=== PATIENT | male | born 1940 | race Caucasian/White ===

== ENCOUNTER 2023-08-01 11:08 | Day surgery (SDC) | payer MEDICARE ==
[2023-08-01] VITALS (8 sets, daily range): BP systolic 92–135; BP diastolic 54–84; PULSE 63–88; RESP 14–16; TEMP 97.9; O2SAT 94–98
[~2023-08-01] VITALS: Ht 165.1 cm; Wt 103.0 kg
[~2023-08-01 11:08] MED LIST: ALBU8.5H17 INH; APIX5TAB3 PO; ASPI-1265 PO; ATOR40TA PO; AZIL40TA PO; COLC0.6T72 PO; DOXA-8 PO; FURO-149 PO; INUL2TAB8 PO; IRON1TAB97 PO; PANT-47 PO; POTA-192 PO; PROB500T10 PO
[2023-08-01] MEDS ORDERED: fentaNYL/PF 50MCG/1 ML 2ML syringe IV ONE (11:30)
[2023-08-01] MEDS ORDERED: MIDAZolam 1mg/ml 10ml vial IV ONE (11:30)
[2023-08-01] MEDS ORDERED: normal saline 1000ml 1,000 ML IV SCH (11:30)
[2023-08-01] MEDS ORDERED: DIPH25CA52 PO (11:34)
[2023-08-01] MEDS ORDERED: HYDR-3972 PO (11:34)
[2023-08-01] MEDS ORDERED: METO100T7 PO ×2 (11:40)
[2023-08-01] MEDS ORDERED: SPIR25TA5 PO (11:40)
[2023-08-01] MEDS ORDERED: DAPA10TA PO (11:40)
[2023-08-01] MEDS ORDERED: SACU1TAB4 PO (11:40)
[2023-08-01] MEDS ORDERED: AMIO200T72 PO (11:40)
[2023-08-01] MEDS ORDERED: FLO0.4C PO (11:40)
[2023-08-01] MEDS ORDERED: APIX5TAB3 PO (11:44)
== END 2023-08-01 13:15 | disposition home or self-care (01) ==
LOC: SSTAY O 11:08
PROVIDERS: ATTEND Student in an Organized Health Care Education/Training Program
DX: I48.91 Unspecified atrial fibrillation (principal); I25.10 Atherosclerotic heart disease of native coronary artery without angina pectoris; E78.5 Hyperlipidemia, unspecified; K21.9 Gastro-esophageal reflux disease without esophagitis; Z95.1 Presence of aortocoronary bypass graft; M19.90 Unspecified osteoarthritis, unspecified site; I27.20 Pulmonary hypertension, unspecified; I11.0 Hypertensive heart disease with heart failure; I50.9 Heart failure, unspecified; I35.0 Nonrheumatic aortic (valve) stenosis; I42.9 Cardiomyopathy, unspecified; Z95.810 Presence of automatic (implantable) cardiac defibrillator; Z79.899 Other long term (current) drug therapy; Z79.01 Long term (current) use of anticoagulants; Z98.890 Other specified postprocedural states; Z88.8 Allergy status to other drugs, medicaments and biological substances
CPT/HCPCS: 82948; 92960; J2250; J3010; J7030; A4620

== ENCOUNTER 2024-05-20 10:37 | Day surgery (SDC) | payer MEDICARE ==
[~2024-05-20] VITALS: Ht 162.6 cm; Wt 106.7 kg
[2024-05-20] VITALS (15 sets, daily range): BP systolic 109–164; BP diastolic 56–77; PULSE 60–97; RESP 14–22; TEMP 97; O2SAT 92–96
[~2024-05-20 10:37] MED LIST changes: -ALBU8.5H17 INH; +AMIO200T72 PO; -ASPI-1265 PO; -AZIL40TA PO; -COLC0.6T72 PO; +DAPA10TA PO; +DIPH25CA52 PO; -DOXA-8 PO; +FLO0.4C PO; +HYDR-3972 PO; -INUL2TAB8 PO; -IRON1TAB97 PO; +METO100T7 PO; -PANT-47 PO; +SACU1TAB4 PO; +SPIR25TA5 PO
[2024-05-20] MEDS ORDERED: normal saline 1,000 ML IV SCH (11:05)
[2024-05-20] MEDS ORDERED: LORazepam 0.5 MG tablet PO PRN (11:05)
[2024-05-20] MEDS ORDERED: diphenhydrAMINE 25mg capsule PO PRN (11:05)
[2024-05-20 11:21] LABS: BASOPHILS % (AUTO) 0.8 % (0-1); EOSINOPHILS # (AUTO) 0.1 X10'3 (0-0.9); EOSINOPHILS % (AUTO) 1.2 % (0-6); HEMATOCRIT 51.1 % (42.0-52.0); LYMPHOCYTES # (AUTO) 1.3 X10'3 (1.1-4.8); MEAN CORPUSCULAR HEMOGLOBIN 32.3 PG (27.0-31.0); MEAN CORPUSCULAR HGB CONC 33.3 g/dL (33.0-36.5); MEAN CORPUSCULAR VOLUME 96.9 FL (78-98); MEAN PLATELET VOLUME 8.7 FL (7.4-10.4); MONOCYTES # (AUTO) 0.7 X10'3 (0-0.9); MONOCYTES % (AUTO) 11.5 % (2-12); NEUTROPHILS % (AUTO) 65.5 % (42-75); PLATELET COUNT 142 X10'3 (140-440); RED BLOOD COUNT 5.28 X10'6 (4.70-6.10); RED CELL DISTRIBUTION WIDTH 15.5 % (11.5-14.5)
[2024-05-20 11:31] LABS: APTT 25 SECONDS (22-32); PROTHROMBIN TIME 10.8 SECONDS (9.0-12.0)
[2024-05-20 11:33] LABS: ALBUMIN 3.3 G/DL (3.4-5.0); ANION GAP 9 (8-16); BLOOD UREA NITROGEN 27 MG/DL (7-18); BUN/CREATININE RATIO 16.3 (10.0-20.0); CALCIUM 9.6 MG/DL (8.5-10.1); CHLORIDE 107 MMOL/L (99-107); CHOL/HDL RATIO 2.4 (0.00-4.99); CHOLESTEROL 159 MG/DL (0-200); CREATININE 1.66 MG/DL (0.60-1.10); GLUCOSE 88 MG/DL (70-104); HDL CHOLESTEROL 65 MG/DL (35-60); LDL CHOLESTEROL 81 MG/DL (50-100); POTASSIUM 4.3 MMOL/L (3.5-5.1); SODIUM 142 MMOL/L (135-145); TOTAL CARBON DIOXIDE 25.8 MMOL/L (24-32); TRIGLYCERIDES 126 MG/DL (20-135); eCRCL 29 ML/MIN; eGFR 40 ML/MIN
[2024-05-20] MEDS ORDERED: DOBUTamine-DoBUTrex 500mg/D5W 250 ML IV SCH (12:40)
[2024-05-20] MEDS ORDERED: nitroGLYCERIN 0.4mg SUBLingual tab SL PRN (12:40)
[2024-05-20] MEDS ORDERED: atropine 0.1mg/ml 10ml syringe IV PRN (12:40)
[2024-05-20] MEDS ORDERED: metoprolol tartrate 1mg/ml inj IV PRN (12:40)
[2024-05-20] MEDS: DOBUTamine-DoBUTrex 500mg/D5W 250 ML IV ONE (16:51)
== END 2024-05-20 17:53 | disposition home or self-care (01) ==
LOC: SSTAY O 10:37
PROVIDERS: ATTEND Student in an Organized Health Care Education/Training Program
DX: I35.0 Nonrheumatic aortic (valve) stenosis (principal); Z53.8 Procedure and treatment not carried out for other reasons; I44.7 Left bundle-branch block, unspecified; I48.91 Unspecified atrial fibrillation; I48.92 Unspecified atrial flutter; I13.0 Hypertensive heart and chronic kidney disease with heart failure and stage 1 through stage 4 chronic kidney disease, or unspecified chronic kidney disease; N18.9 Chronic kidney disease, unspecified; I50.9 Heart failure, unspecified; I25.10 Atherosclerotic heart disease of native coronary artery without angina pectoris; E78.00 Pure hypercholesterolemia, unspecified; K21.9 Gastro-esophageal reflux disease without esophagitis; I42.9 Cardiomyopathy, unspecified; M19.90 Unspecified osteoarthritis, unspecified site; Z86.711 Personal history of pulmonary embolism; Z79.01 Long term (current) use of anticoagulants; Z79.891 Long term (current) use of opiate analgesic; Z79.899 Other long term (current) drug therapy; Z95.1 Presence of aortocoronary bypass graft; Z88.8 Allergy status to other drugs, medicaments and biological substances
CPT/HCPCS: 36415; 80048; 80061; 85025; 85610; 85730; 93005; 93351; J1250; J7030; Z7610

== ENCOUNTER 2025-05-18 01:03 | Inpatient (IN) | payer MEDICARE ==
[~2025-05-18] VITALS: Ht 165.1 cm; Wt 104.0 kg
[~2025-05-18 01:03] MED LIST changes: -AMIO200T72 PO; -DIPH25CA52 PO; -FLO0.4C PO; +TAMS-55 PO
--- NOTE | 2025-05-18 01:18 | ELECTROCARDIOGRAPH REPORT ---
[facility] Test Date: 2025-05-18 Test Time: 01:13:47 Pat Name: JUAN MCLAUGHLIN Department: EMERGENCY ROOM Room: Gender: M Safety Associate: MAUREEN : 1940 Requested By: AYAAN MORENO Order Number: [id number] Reading MD: Dr. Ayaan Moreno Measurements Intervals [place] Rate: 71 P: -2 CO: 226 QRS: -63 QRSD: 142 T: 50 QT: 358 QTc: 389 Interpretive Statements Ventricular-paced complexes No further rhythm analysis attempted due to paced rhythm Prolonged CO interval Left bundle branch block Electronically Signed On 05-18-2025 1:29:[address] Ayaan Moreno Please click the below link to view image of tracing.
--- NOTE | 2025-05-18 02:00 | Physician Documentation ---
History of Present Illness ~ Chief Complaint: Bloody Stools Stated Complaint: GI BLEED Time Seen by MD: 01:59 OK to notify your PCP?: Yes Primary Medical Doctor: DUTCH Source: patient, RN/MD, EMS, RN notes reviewed, old records Mode of Arrival: EMS Exam Limitations: no limitations HPI THIS PATIENT WAS SEEN IN BED 3 This patient is an 84 y/o male BIBEMS to ED from [facility] for suspected upper GI bleed. Patient initially presented to [facility] for weakness and melena. He has a known history of afib, which he takes Eliquis for. Patient was given reversal medications including protonix, Calcium, elequine, and prothrombin prior to arrival at [facility]. Patient, when asked, states he has a history of GI bleed but it was very long ago. He states he has recently developed nausea but otherwise denies any abdominal cramps or vomiting. Patient denies any other associated symptoms at this time. Patient denies any other alleviating or exacerbating factors. Medication Reconciliation Allergies: Coded Allergies: peanut (Verified Allergy, Intermediate, RESPIRATORY, 05/18/25) mustard (Verified Allergy, Mild, GETS ITCHY, 05/18/25) ezetimibe (Verified Allergy, Unknown, 05/18/25) hydromorphone HCl (Verified Allergy, Unknown, 05/18/25) oxycodone HCl (Verified Allergy, Unknown, 05/18/25) simvastatin (Verified Allergy, Unknown, 05/18/25) Scheduled Apixaban (Eliquis), 1 TAB PO Q12H, (Reported) Atorvastatin Calcium* (Lipitor*), 1 TAB PO DAILY, (Reported) Dapagliflozin Propanediol (Farxiga), 1 TAB PO DAILY, (Reported) Furosemide (Lasix), 0.5 TAB PO BID, (Reported) Metoprolol Succinate* (Toprol Xl*), 1 TAB PO QAM, (Reported) Metoprolol Succinate* (Toprol Xl*), 2 TAB PO QPM, (Reported) Potassium Chloride (Klor-Con), 2 TAB PO DAILY, (Reported) Probenecid (Probenecid), 1 TAB PO BID, (Reported) Sacubitril/Valsartan (Entresto 97 mg-103 mg Tablet), 1 TAB PO BID, (Reported) Spironolactone (Spironolactone), 0.5 TAB PO DAILY, (Reported) Tamsulosin Hcl* (Flomax*), 1 CAP PO DAILY, (Reported) Scheduled PRN Hydrocodone Bit/Acetaminophen (Hydrocodon-Acetaminophn 10-325 tablet), 1-2 TABLET PO Q6H PRN for moderate or severe pain 4-10, (Reported) Past Medical History Past Medical History: Coronary Artery Disease, Congestive Heart Failure, High Cholesterol, Myocardial Infarction, Renal Disease Past Surgical History: coronary bypass surgery, orthopedic surgeries Smoking Status: Never smoker Alcohol Use: None Drug Use: none Review of Systems All Other Systems at this time: Reviewed and Negative Physical Exam Vital Signs: RN Vital Signs have been reviewed: Yes, Temperature: 98.7, Source: Oral, Heart Rate: 74, Respiratory Rate: 16, BP: 104/48, Pulse Oximetry: 90, Weight: 104.000 Oxygen Flow Rate: 0 Physical Exam General: The patient is well developed, well nourished, nontoxic appearing and is in no acute distress. Skin: [place], warm and dry with no rashes. HEENT: Head was normocephalic and atraumatic. Eyes - pupils equal, round, reactive to light and accommodation. Extraocular movements were intact. Conjunctivae were nonicteric. Ears - bilateral tympanic membranes were normal. The mouth and oropharynx were clear with moist mucous membranes. There were no pharyngeal exudates or erythema. Neck: Supple and nontender. There was no jugular venous distention, lymphadenopathy, thyromegaly or masses. Chest: Clear to auscultation bilaterally without wheezes, rales or rhonchi. No accessory muscle use. No dullness to percussion. Heart: Rate regular and rhythmic. S1, S2. No murmurs. Palpation of the chest wall was normal. No rubs or thrills. Abdomen: Soft, nontender and nondistended. Hyperactive bowel sounds. No guardi ng or rebound. No hepatosplenomegaly or palpable masses. Extremities: No cyanosis, clubbing or edema. The patient moves all extremities. Pulses were equal and symmetric. Neurologic: Cranial nerves II-XII were intact. Sensation was intact to light t ouch throughout. Motor strength was 5/5 in all four extremities. Deep tendon reflexes were intact in both upper and lower extremities. Psychologic: The patient was oriented to person, place and time. The patient demonstrated appropriate judgement and insight. Progress Results/Orders Reviewed/noted all lab results: Yes Results/Orders Orders - ELIU DRAPER MD Electrocardiogram (05/18/25 01:17) Type And Screen (05/18/25 02:01) Normal Saline 1000ml (Sodium Chloride 10 (05/18/25 02:05) Monitor (05/18/25 02:01) Saline Lock (05/18/25 02:01) Completed Orders - ELIU DRAPER MD Electrocardiogram (05/18/25 01:17) Cbc/Diff (05/18/25 02:01) MG (05/18/25 02:01) Urinalysis, Cult If Indicated (05/18/25 02:01) Pt Inr (05/18/25 02:01) PTT (05/18/25 02:01) BMP (05/18/25 02:01) Hs Troponin I W Calculations (05/18/25 02:01) Pantoprazole 40mg Iv (Protonix 40mg Iv) (05/18/25 02:05) Medications Received in ER Medications (Trade) Dose Ordered Sig/Dorian Route PRN Reason Start Time Stop Time Status Last Admin Dose Admin Sodium Chloride 1,000 ml @ 100 mls/hr Q10H ONCE IV 05/18/25 02:05 05/18/25 12:04 05/18/25 03:43 100 MLS/HR (Protonix 40mg IV) 40 mg ONCE ONCE IV 05/18/25 02:05 05/18/25 02:06 DC 05/18/25 03:43 40 MG Pantoprazole Sodium 100 ml @ 20 mls/hr Q5H IV 05/18/25 02:10 05/18/25 05:54 20 MLS/HR Vital Signs 05/18/25 01:08 Temp 98.7 Pulse 74 Resp 16 B/P (MAP) 104/48 Pulse Ox 90 O2 Flow Rate 0 Re-Evaluation Re-Evaluation : Re-Evaluation: Unchanged Progress Patient appears relatively stable. Patient had some black tarry stools transferred for upper GI bleed. Protonix was given prior to transfer. Upon arrival patient received type and screen laboratory work was reobtained. There was no active bleeding at this time additional dose of Protonix was provided. Patient received reversal agents prior to transfer. Patient's initial hematocrit was 12 and 37 chemistry shows an elevated BUN of 121 creatinine is elevated at 2.56 potassium is elevated at 5.3. Troponin is also negative. Hospitalist was then contacted. Patient was then admitted for further workup and care. GI will be consulted in the morning. Patient remained hemodynamically stable. Prior to hospitalization transfer patient's blood pressure was slightly elevated. Now blood pressure seemed to be a bit on the soft side. Continuous rn cardiac interpretation shows normal sinus rhythm heart rate 70s, no ectopy, normal, my interpretation. Pulse oximetry monitor interpretation shows normal oxygenation at 96% room air, normal, my interpretation. EKG/XRAY/CT/US/VASC/MRI EKG : Additional Comment Patient: JUAN MCLAUGHLIN Medical Record: [id number] [facility] : 1940, Age: 84Sex: M Location: ER Patient Status: REG ER Service Date/Time: Ordering Physician: ELIU DRAPER MD Exam Name: ELECTROCARDIOGRAM Technologist: [facility] Test Date: 2025-05-18 Test Time: 01:13:47 Pat Name: JUAN MCLAUGHLIN Department: EMERGENCY ROOM Room: Gender: M Early Childhood Lead Teacher: : 1940 Requested By: ELIU DRAPER Order Number: [id number] Reading MD: Dr. Eliu Draper Measurements Intervals [place] Rate: 71 P: -2 NH: 226 QRS: -63 QRSD: 142 T: 50 QT: 358 QTc: 389 Interpretive Statements Ventricular-paced complexes No further rhythm analysis attempted due to paced rhythm Prolonged [place] interval Left bundle branch block Electronically Signed On 05-18-2025 1:29:[address] Eliu Draper Please click the below link to view image of tracing. EKG Date and Time:05/18/25112 Electronically Signed by: ELIU DRAPER MD Date and Time: 05/18/25128 NO PRIMARY CARE PROVIDER~ cc: ~ Medical Decision Making Additional info obtained from: old records Diff Dx GI Bleed:Consideration: Include: AE fistula, Angiodysplasia, Bleeding diathesis, Blood loss anemia, Carcinoma, Diverticulosis, Diverticulitis, Esophageal varicies, Esophagitis, Gastritis, Gastroenteritis, Inflammatory BD, Janee-Bunch syndrome, Meckel's diverticulum, PUD, Other Departure Time of Disposition: 02:09 Admitted to Inpatient Unit: yes, to hospitalist Admission Level of Care: PCU with Tele Impression: Primary Impression: Upper GI bleed Additional Impressions: Hyperkalemia Renal insufficiency Condition: Guarded Referrals: NO PRIMARY CARE PROVIDER (PCP) Education Educated: Patient Educated regarding: diagnosis, need for follow up, other Critical Care Note Total Time (mins): 30 Critical Care Note The very real possibility of a deterioration of this patient's condition req uired the highest level of my preparedness for sudden, emergent intervention. I provided critical care services, which included medication orders, frequent reevaluations of the patient's condition and response to treatment, ordering and reviewing test results, and discussing the case with various consultants. Excludes time spent performing separately billable procedures. The critical care time associated with the care of the patient was 30 minutes. Signature Scribe Signature: Scribed for Eliu Draper MD by Ayse Becker . 05/18/25 05:39 Attestation: The note accurately reflects work and decisions made by me.Eliu Draper MD 05/18/25 02:00 ELIU DRAPER MD May 18, 2025 02:00
[2025-05-18] MEDS ORDERED: HYDROmorphone inj. 0.5 MG/0.5 ML DISP.SYRIN IV PRN (02:10)
[2025-05-18] MEDS: normal saline 1000ml 1,000 ML IV SCH ×2 (02:10→03:40)
[2025-05-18] MEDS ORDERED: HYDROcodone/acetaminophen 10/325mg tab PO PRN ×2 (02:10→19:25)
[2025-05-18] MEDS ORDERED: potassium Cl 40MEQ/1/2NS 520ml 520 ML IV PRN (02:10)
[2025-05-18] MEDS ORDERED: HYDROmorphone/PF 0.2 MG/ML SYRINGE IV PRN (02:10)
[2025-05-18] MEDS ORDERED: magnesium hydroxide 30ml (MOM) UD suspension PO PRN (02:10)
[2025-05-18] MEDS ORDERED: HYDROcodone/acetaminophen 5mg/325mg tablet PO PRN (02:10)
[2025-05-18] MEDS ORDERED: mag hydrox/Alum hydrox/simeth 30ml oral suspension PO PRN (02:10)
[2025-05-18] MEDS ORDERED: magnesium Cl slow-release 64mg tablet PO PRN (02:10)
[2025-05-18] MEDS ORDERED: ondansetron/PF 4mg/2ml inj IV PRN (02:10)
[2025-05-18] MEDS ORDERED: potassium Cl 20 mEq SR tablet PO PRN ×2 (02:10)
[2025-05-18] MEDS ORDERED: magnesium sulf-water 2g/50mL 50 ML IV PRN (02:10)
[2025-05-18] MEDS ORDERED: magnesium sulf-water 4G/100mL 100 ML IV PRN (02:10)
[2025-05-18 02:36] LABS: MEAN PLATELET VOLUME 9.6 FL (7.4-10.4); RED CELL DISTRIBUTION WIDTH 15.9 % (11.5-14.5)
[2025-05-18 02:46] LABS: APTT 23 SECONDS (22-32); INR 1.0 INR
[2025-05-18 02:55] LABS: CREATININE 2.56 MG/DL (0.60-1.10); PRO BRAIN NATRIURETIC PEPTIDE 173 PG/ML (0-450); TOTAL CARBON DIOXIDE 22.9 MMOL/L (24-32); eCRCL 19 ML/MIN; eGFR 24 ML/MIN
--- NOTE | 2025-05-18 03:38 | HISTORY AND PHYSICAL-Residence ---
History & Physical Providers to CC Resident Creating Document: EDWARD MEJIAI, RES ~ History of Present Illness Primary Medical Doctor: DUTCH Reason for Admit\Complaint: Bloody stools History of Present Illness This is a 84-year-old male with a history of hypertension, CAD s/p CABG, diverticulitis, atrial fibrillation s/p ablation, pacemaker placement on Eliquis was transferred from [facility] with a chief complaint of blood in stool. Patient states that he has been having diarrhea on and off for one year for which his PCP suggested to avoid dairy products and diet and prescribed Imodium which he takes daily. He has a about two episodes of diarrhea every day. Diarrhea is associated with upset stomach, abdominal pain and bloating. This morning he also noticed moderate amount of blood in the stool due to which he got concerned and visited the ER. He denies fever but mentions that he has had melena on and off in the last 12 months. He denies any history of ulcers in the past or H pylori in the past. He never had endoscopy done in his last colonoscopy was 10 years ago. He does not have a GI doctor ED course at [facility]: His hemoglobin was 13.4 which dropped to 12 after administering fluids and stool occult was positive for GI bleed. He did have a maroon bloody stool on rectal exam. He also received a dose of tranexamic acid and Protonix and was transferred to [facility] for GI consultation. Patient also had hyperkalemia, elevated BUN and creatinine secondary to CKD Allergies: Coded Allergies: peanut (Verified Allergy, Intermediate, RESPIRATORY, 05/18/25) mustard (Verified Allergy, Mild, GETS ITCHY, 05/18/25) ezetimibe (Verified Allergy, Unknown, 05/18/25) hydromorphone HCl (Verified Allergy, Unknown, 05/18/25) oxycodone HCl (Verified Allergy, Unknown, 05/18/25) simvastatin (Verified Allergy, Unknown, 05/18/25) Home Medications Home Medications Active Reported Eliquis (Apixaban) 5 Mg Tablet 1 Tab PO Q12H 30 Days Farxiga (Dapagliflozin Propanediol) 10 Mg Tablet 1 Tab PO DAILY 30 Days Spironolactone 25 Mg Tablet 0.5 Tab PO DAILY 30 Days Entresto 97 mg-103 mg Tablet (Sacubitril/Valsartan) 97 Mg-103 Mg Tablet 1 Tab PO BID Flomax* (Tamsulosin HCl) 0.4 Mg Cap.sr.24h 1 Cap PO DAILY 30 Days Toprol Xl* (Metoprolol Succinate) 100 Mg Tab.sr.24h 2 Tab PO QPM 30 Days Toprol Xl* (Metoprolol Succinate) 100 Mg Tab.sr.24h 1 Tab PO QAM 30 Days Hydrocodon-Acetaminophn 10-325 tablet (Acetaminophen/Hydrocodone Bitart) 10mg- 325mg Tablet 1-2 Tablet PO Q6H PRN Probenecid 500 Mg Tablet 1 Tab PO BID Klor-Con (Potassium Chloride) 10 Meq Tab.prt.sr 2 Tab PO DAILY 30 Days Lasix (Furosemide) 40 Mg Tablet 0.5 Tab PO BID 30 Days Lipitor* (Atorvastatin Calcium) 40 Mg Tablet 1 Tab PO DAILY 30 Days Past Medical History Past Medical History Coronary artery disease Hyperlipidemia Gout GERD Hypertension CHF unspecified type Past Surgical History Surgical History Comment CABG x5 - 40 years ago Aortic bypass 28 years ago. Patient states he had clots. Benign tumor removed from lower abdomen and subsequent hernia repair Past Social History Social History Comment Patient states he quit smoking 40 years ago, smoked about one pack per day for 25 years before that, drinks occasionally 1-2 drinks per night but quit 40 years ago, does not do any drugs. Lives at home with his . Alcohol Use: None Drug Use: None ROS All Other Systems: Reviewed and Negative ROS To get in full and negative except for the pertinent positives in HPI Exam Vitals: Vital Signs Date Time Temp Pulse Resp B/P (MAP) Pulse Ox O2 Delivery O2 Flow Rate FiO2 05/18/25 03:00 18 05/18/25 01:08 98.7 74 90 0 General: General: The patient is well developed, well nourished, nontoxic appearing and is in no acute distress. Skin: [place], warm and dry with no rashes. HEENT: Head was normocephalic and atraumatic. Eyes - pupils equal, round, reactive to light and accommodation. Extraocular movements were intact. Conjunctivae were nonicteric. Ears - bilateral tympanic membranes were normal. The mouth and oropharynx were clear with moist mucous membranes. There were no pharyngeal exudates or erythema. Neck: Supple and nontender. There was no jugular venous distention, lymphadenopathy, thyromegaly or masses. Chest: Clear to auscultation bilaterally without wheezes, rales or rhonchi. No accessory muscle use. No dullness to percussion. Heart: Rate regular and rhythmic. S1, S2. No murmurs. Palpation of the chest wall was normal. No rubs or thrills. Abdomen: Soft, nontender and nondistended. Hyperactive bowel sounds. No guarding or rebound. No hepatosplenomegaly or palpable masses. Extremities: No cyanosis, clubbing or edema. The patient moves all extremities. Pulses were equal and symmetric. Neurologic: Cranial nerves II-XII were intact. Sensation was intact to light touch throughout. Motor strength was 5/5 in all four extremities. Deep tendon reflexes were intact in both upper and lower extremities. Psychologic: The patient was oriented to person, place and time. The patient demonstrated appropriate judgement and insight. Diagnostic Data Last Recorded Lab Results: 05/18/2522305/18/25223 Diagnostic Data: Laboratory Tests Test 05/18/25 02:24 Prothrombin Time 10.6 SECONDS (9.0-12.0) INR International Normalized Ratio 1.0 INR Activated Partial Thromboplast Time 23 SECONDS (22-32) Coagulation Comments Advance Care Planning Advanced Care plannin - 30 Minutes (I spent a total of 17 minutes on reviewing various resuscitative measures/ ACP with the patient at the time of admission. The patient has decided on a full code status) Additional Plan Bloody stools suspicious for lower GI bleed, differentials include diverticulitis, Shigella infection, gastroenteritis, IBD Normocytic normochromic anemia Chronic diarrhea Started on Protonix drip. Hemoglobin is stable at 12.2 compared to hemoglobin at other hospital which was 13.4, 12.4. Hold Eliquis MCV is 95.9 in MCH is high making iron-deficiency anemia less likely. INR is one, reassuring. Platelet count is mildly low at 119k. BUN 121, creatinine 2.56 with a high BUN/creatinine ratio. CT abdomen done at the other facility showed no abnormalities. Mucous membranes are dry, started on NS at the rate of 100 mL/hour. Stop fluids in the a.m. given history of CHF once euvolemic. Ordered iron studies. Follow up. Consult GI in the a.m. NPO after midnight. Avoid Imodium for now Ordered stool studies including stool cultures, ova and parasites to rule out infection, ESR, CRP, fecal calprotectin to rule out IBD History of atrial fibrillation S/p pacemaker placement, ablation Continue home medication metoprolol 100 mg daily after med rec. Hold Eliquis for now. Continue telemetry monitoring History of CHF, not in exacerbation Pro BNP is 173, chest x-ray at other facility shows no pulmonary congestion. Restart home medication Farxiga 10 mg p.o. daily, Lasix 20 mg p.o. b.i.d., Entresto b.i.d., spironolactone 12.5 p.o. daily after med rec once euvolemic. Hyperkalemia Potassium 5.5. Hold home medication Entresto, spironolactone for now. Started on Kayexalate scheduled History of CAD s/p CABG, stent placement Currently on Eliquis. Not on aspirin. Hold Eliquis in the view of GI bleed Hypertension Hyperlipidemia BPH Restart home medication metoprolol 100 mg, atorvastatin 40 mg p.o. daily, tamsulosin 0.4 mg daily after med rec CKD stage III Baseline is 2.8, current creatinine is 2.5. Avoid contrast and nephrotoxic agents. Monitor CMP. History of gout Restart home medication allopurinol after med rec Code Status: Full code DVT Prophylaxis: SCDs Analgesia/Sedation: [place] morphine p.r.n. Lines/Tubes: PIV Gi Prophylaxis: Protonix Nutrition: NPO after midnight PT: Yes Prognosis: Guarded Disposition: Admit to PCU with telemetry monitoring Edward Agosto MD Internal Medicine Resident PGY-1 Elderly gentleman Hemodynamically stable we held Eliquis Will consult GI stool studies to r/o infectious causes of hematochezia He already had a CT of the abdomen gentle hydration as hx of CHF but appears dehydrated at this time. Date of Service: May 18, 2025 Billing Provider: DORCAS SEALS MD,EDWARD AGOSTO, RES May 18, 2025 03:38 DORCAS SEALS MD May 18, 2025 05:59
[2025-05-18] MEDS: normal saline 1000ml 1,000 ML IV ONE (03:43)
--- NOTE | 2025-05-18 04:21 | RADIOLOGY REPORT ---
CHEST RADIOGRAPH Indication: CHF Technique: Single frontal view of the chest was obtained COMPARISON: CHEST,SINGLE VIEW on DOS: 07/23/20 FINDINGS: Lines and Tubes: None. Left anterior chest wall dual lead cardiac pacing device. Lungs: Clear Pleura: No effusion. No pneumothorax. Cardiomediastinal contours: Unremarkable status post median sternotomy. Bones: Unremarkable IMPRESSION: 1. No acute disease.
[2025-05-18 05:25] LABS: % IRON SATURATION 33.0 % (11-46)
[2025-05-18] MEDS: pantoprazole 40MG/NS 100ML BAG 100 ML IV SCH (05:54)
[2025-05-18] MEDS: pantoprazole 40MG/NS 100ML BAG 100 ML IV ONE (05:55)
[2025-05-18] MEDS: sodium polystyrene sulfonate 15gm/60ml oral suspension PO SCH (05:55)
[2025-05-18 06:15] LABS: LEUKOCYTE ESTERASE ,URINE NEGATIVE (Neg); NITRITES, URINE NEGATIVE (Neg); OCCULT BLOOD,URINE NEGATIVE (Neg)
[2025-05-18 06:18] LABS: UA COLLECTION TYPE URINAL
[2025-05-18] MEDS: K and/or MAG REPLACEMENT MC SCH (08:00)
[2025-05-18] MEDS: docusate sod 100mg capsule PO SCH (08:00)
[2025-05-18 08:19] LABS: MEAN PLATELET VOLUME 9.4 FL (7.4-10.4); RED CELL DISTRIBUTION WIDTH 15.9 % (11.5-14.5)
[2025-05-18 08:35] LABS: CREATININE 2.87 MG/DL (0.60-1.10); TOTAL CARBON DIOXIDE 22.2 MMOL/L (24-32); eCRCL 17 ML/MIN; eGFR 21 ML/MIN
[2025-05-18 13:10] LABS: MEAN PLATELET VOLUME 10.2 FL (7.4-10.4); RED CELL DISTRIBUTION WIDTH 16.1 % (11.5-14.5)
[2025-05-18 15:00] VITALS: BP 103/61; PULSE 79; RESP 14; TEMP 97.6; O2SAT 94
[2025-05-18] MEDS: PEG 3350/Na sulf,bicarb,Cl/KCl oral sol 4 liter bottle PO ONE (16:00)
[2025-05-18 16:43] LABS: OCCULT BLOOD STOOL POSITIVE (Neg)
[2025-05-18 18:00] VITALS: BP 111/55; PULSE 77; RESP 15; TEMP 97; O2SAT 96
[2025-05-18 19:10] LABS: MEAN PLATELET VOLUME 9.7 FL (7.4-10.4); RED CELL DISTRIBUTION WIDTH 15.6 % (11.5-14.5)
[2025-05-18 20:30] VITALS: RESP 17
[2025-05-18] MEDS: probenecid 500mg tablet PO SCH (21:37)
[2025-05-18] MEDS: metoprolol succinate 25mg (24-HOUR) SR. Tablet PO SCH (21:37)
[2025-05-18 22:00] VITALS: BP 128/83; PULSE 82; RESP 25; TEMP 96.7; O2SAT 94
[2025-05-19] VITALS (17 sets, daily range): BP systolic 101–159; BP diastolic 49–85; PULSE 69–82; RESP 10–23; TEMP 97.3–98.3; O2SAT 95–100
[2025-05-19 06:12] LABS: MEAN PLATELET VOLUME 8.9 FL (7.4-10.4); RED CELL DISTRIBUTION WIDTH 15.7 % (11.5-14.5)
[2025-05-19 06:35] LABS: CREATININE 1.95 MG/DL (0.60-1.10); TOTAL CARBON DIOXIDE 23.8 MMOL/L (24-32); eCRCL 25 ML/MIN; eGFR 33 ML/MIN
[2025-05-19] MEDS: PERFLUTREN PROTEIN-A MICROSPHR (Optison) 0.22 MG/ML 3ML VIAL IV ONE (07:20)
[2025-05-19] MEDS: Sacubitril/Valsartan (Entresto 97 mg-103 mg Tablet) PO SCH (08:00)
[2025-05-19] MEDS ORDERED: DAPAGLIFLOZIN 10MG TABLET PO SCH (08:00)
[2025-05-19] MEDS: metoprolol succinate 25mg (24-HOUR) SR. Tablet PO SCH (09:12)
[2025-05-19] MEDS: EMPAGLIFLOZIN 25 MG TABLET PO SCH (09:13)
[2025-05-19] MEDS ORDERED: LIDOcaine 2% Viscous 15ml cup ONE (13:34)
[2025-05-19] MEDS ORDERED: propofol 10mg/ml 20ml vial IV ONE (14:04)
--- NOTE | 2025-05-19 18:24 | PROGRESS NOTE- Residence ---
Progress Note - Resident Providers to CC Resident Creating Document: LINDA MORENO CELINA, RES ~ Antibiotic Timeout Antibiotic Ordered?: Yes Subjective The patient was seen and examined at bedside today. He is scheduled for endoscopy and colonoscopy this afternoon. He had no more bloody bowel movements overnight. Physical therapy cleared him for home discharge. Objective Vital Signs Date Time Temp Pulse Resp B/P (MAP) Pulse Ox O2 Delivery O2 Flow Rate FiO2 05/19/25 17:30 98.3 78 18 127/62 (83) 98 Room Air 05/19/25 15:10 0.0 Result Diagram: 05/19/2553605/19/25 05 Elderly male, alert and oriented x4, not in acute distress Head: Normocephalic with an atraumatic Eyes: Pupils- 3mm, reacting to light, conjunctiva- anicteric Nose and throat: No polyps, septum- normal, no mucosal ulcers Neck: Supple, no lymphadenopathy, no carotid bruit Respiratory: No use of accessory muscles of respiration, Bilateral normal vesiscular breath sounds heard. No wheeze, rhochi or creps Cardiac: S1-S2 heard, rhythm regular, no gallop/murmur Abdomen: non distended, no tenderness, no organomegaly, bowel sounds - heard Extremities: no clubbing, 1+ pedal edema, no deformities, peripheral pulses - 2+ Skin: warm and dry, no rash, no purpura Neuro: No focal deficit, gross cranial nerve exam - normal Coagulation Studies Laboratory Tests Test 05/18/25 02:24 Prothrombin Time 10.6 SECONDS (9.0-12.0) INR International Normalized Ratio 1.0 INR Activated Partial Thromboplast Time 23 SECONDS (22-32) Coagulation Comments Plan Plan Upper GI bleed Normocytic normochromic anemia Chronic diarrhea Continue IV Protonix at 8 mg/hour. Patient scheduled for endoscopy and colonoscopy this afternoon. NPO and heart healthy diet after procedures. H&H trending down 10.7 today. Repeat another one at 5:00 p.m. today. History of atrial fibrillation S/p pacemaker placement, ablation Continue home medication metoprolol 100 mg daily. Hold Eliquis for now. Continue telemetry monitoring History of CHF, not in exacerbation Pro BNP is 173, chest x-ray at other facility shows no pulmonary congestion. Restart home medication Farxiga 10 mg p.o. daily, Lasix 20 mg p.o. b.i.d., Entresto b.i.d., spironolactone 12.5 p.o. daily. Hyperkalemia, resolved History of CAD s/p CABG, stent placement Currently on Eliquis. Not on aspirin. Hold Eliquis in the view of GI bleed. Hypertension Hyperlipidemia BPH Restart home medication metoprolol 100 mg, atorvastatin 40 mg p.o. daily, tamsulosin 0.4 mg daily after med rec CECI on CKD stage III please secondary to vasomotor nephropathy Kidney function getting better with IV fluids. Decreased fluids to 50 mL/hour as he is developing pedal edema. Avoid contrast and nephrotoxic agents. Monitor CMP. History of gout Restart home medication allopurinol. Code Status: Full code DVT Prophylaxis: SCDs Analgesia/Sedation: [place] morphine p.r.n. Lines/Tubes: PIV Gi Prophylaxis: Protonix Nutrition: NPO and Heart healthy diet after EGD and colonoscopy PT: Home independent Prognosis: Guarded Disposition: Continue care in the medical more. Follow up with EGD and colonoscopy reports. Hold Eliquis. Trend H&H. Linda Moreno MD Internal Medicine Resident, PGY-1 Date of Service: May 19, 2025 Billing Provider: RENETTA COBIAN MD,LINDA PATRICK, RES May 19, 2025 18:24
[2025-05-19] MEDS: normal saline 1000ml 1,000 ML IV SCH (18:50)
--- NOTE | 2025-05-19 19:08 | CARDIOLOGY REPORT ---
APPROVED REPORT EXAM: Comprehensive 2D, Doppler, and color-flow Echocardiogram. Patient Location: [address] Heart Rate: 70's bpm Rhythm: PACED Indications CONGESTIVE HEART FAILURE CABG x5 40 YEARS AGO HYPERTENSION PACEMAKER Lead Java Programmer: Alyse English MD Previous echo: 05-20-24 [facility] EF 28%, TRE: 1.4 cmsq; PK V: 2.68 m/s; GRAD: 28/13 mmHg, trMR 2D Dimensions RVDd 3.4 cm LA Diam4.9 cm IVSd 1.1 (0.7-1.1cm) LVDd 4.9 cm PWd 1.3 (0.7-1.1cm) IVSs 1.4 (0.8-1.2cm) LVDs 4.4 (2.5-4.0cm) PWs 1.9 (0.8-1.2cm) LVOT Diameter 2.19 (1.8-2.4cm) LVEF(%) 21.8 (>50%) FS (%) 10.0 % SV 24.5 ml CO 1.8 L/min M-Mode Dimensions Left Atrium(MM) 4.88 (2.5-4.0cm) Aortic Root 3.22 (2.2-3.7cm) Aortic Valve AoV Peak Vargas. 287.8 cm/s AoV VTI 70.8 cm AO Peak GR. 33.1 mmHg AO Mean GR. 17 mmHg LVOT VTI 24.45 cm LVOT Peak Vargas. 122.1 cm/s TRE(VTI)/BSA 1.30 cm2/m2 TRE (VTI) 1.30 cm2 Mitral Valve MV E Velocity 85.3 cm/s MV Peak Gr. 4 mmHg MV DECEL TIME 172 ms MV A Velocity 80.2 cm/s MV PHT 56 ms E/A Ratio 1.1 MVA (PHT) 3.93 cm2 MV VMax97.8 cm/s Tricuspid Valve TR P. Velocity 297 cm/s RAP ESTIMATE 10 mmHg TR Peak Gr. 35 mmHg RVSP 45 mmHg LEFT VENTRICLE Normal LV size and wall thickness. Overall systolic function is severely reduced. LVEF is 20-25%. RIGHT VENTRICLE RV is mildly dilated in size with normal function. Pacemaker wire in right heart. Elevated right hear t pressures as noted above. ATRIA Left atrium is moderately dilated. AORTIC VALVE Probable trileaflet AV appears moderately sclerotic and calcified with moderate stenosis. TRE is jay ured at 1.30 cmsq. Peak / mean gradients of 33/17 mmHG. Peak velocity is measured at 288 cm/s. Stenos is severity is likely moderate, but fails to meet criteria due to low flow / low gradient conditions. No insufficiency. MITRAL VALVE Mild MV annular calcification without stenosis. Trace regurgitation. TRICUSPID VALVE TV appears structurally normal with trace regurgitation. PULMONIC VALVE Normal PV without stenosis, physiologic insufficiency. GREAT VESSELS The aortic root is normal in size. PERICARDIUM Normal pericardium. No effusion. Other Information Study Quality: Fair Conclusion Normal LV size and wall thickness. Overall systolic function is severely reduced. LVEF is 20-25%. RV is mildly dilated in size with normal function. Pacemaker wire in right heart. Elevated right hear t pressures with an RVSP of 45 mmHg. Left atrium is moderately dilated. Probable trileaflet AV appears moderately sclerotic and calcified with moderate stenosis. TRE is jay ured at 1.30 cmsq. Peak / mean gradients of 33/17 mmHG. Peak velocity is measured at 288 cm/s. Sten osis severity is likely moderate, but fails to meet criteria due to low flow / low gradient conditio ns. No insufficiency. Mild MV annular calcification without stenosis. Trace regurgitation. TV appears structurally normal with trace regurgitation. Normal pericardium. No effusion.
[2025-05-19 19:41] LABS: MEAN PLATELET VOLUME 8.5 FL (7.4-10.4); RED CELL DISTRIBUTION WIDTH 16.3 % (11.5-14.5)
--- NOTE | 2025-05-19 20:28 | CONSULTATION ---
DATE OF CONSULTATION: 05/18/2025 DICTATING PHYSICIAN: Radha Moon MD REASON FOR CONSULTATION: Melena. HISTORY OF PRESENT ILLNESS: The patient is an 84-year-old, apparently brought from [facility] for suspected upper GI bleed, has a known history of atrial fibrillation, taking Eliquis. Does have some abdominal discomfort, has had melena in the past. He has had multiple bowel movements, which are black, tarry. No history of any vomiting or hematemesis. Denies taking excessive NSAIDs. PAST MEDICAL HISTORY: Positive for coronary artery disease, congestive heart failure and renal disease. FAMILY HISTORY: Noncontributory. PERSONAL HISTORY: Noncontributory. REVIEW OF SYSTEMS: A 12-point review of systems essentially same as history of present illness. PHYSICAL EXAMINATION: VITAL SIGNS: Normal. HEART: Normal. LUNGS: Normal. ABDOMEN: Protuberant, nontender. No masses, no organomegaly. Bowel sounds are present. EXTREMITIES: Reveal no clubbing, cyanosis or edema. NEUROLOGIC: Cranial nerves bilaterally within normal limits. HEMATOLOGIC: Reveals no anemia, petechiae, or purpura. PSYCHOLOGIC: Within normal limits. LABORATORY VALUES: Revealed hemoglobin of about 12 grams, hematocrit of 37, platelet count of 119, MCV 95. Coagulation profile is normal. Chemistries are essentially unremarkable. IMPRESSION: An elderly man admitted with upper GI bleed, possibly questionable hematochezia, although unlikely. RECOMMENDATIONS: Continue current management including having Protonix. N.p.o. after midnight for an endoscopy tomorrow. Risks and benefits of endoscopy explained, which he understands and wishes to proceed. Further recommendations will be made after the endoscopy. Radha Moon MD TID: [id number] RECEIPT: [id number] BYRON/PEPPER
[2025-05-19] MEDS: pantoprazole 40mg Tablet.DR PO SCH (20:44)
[2025-05-20 02:00] VITALS: BP 126/53; PULSE 64; RESP 13; TEMP 97.3; O2SAT 95
[2025-05-20 05:59] LABS: MEAN PLATELET VOLUME 8.9 FL (7.4-10.4); RED CELL DISTRIBUTION WIDTH 15.9 % (11.5-14.5)
[2025-05-20 06:12] LABS: CREATININE 1.45 MG/DL (0.60-1.10); TOTAL CARBON DIOXIDE 23.6 MMOL/L (24-32); eCRCL 34 ML/MIN; eGFR 46 ML/MIN
[2025-05-20 07:00] VITALS: BP 125/80; PULSE 69; RESP 16; TEMP 98.5; O2SAT 93
[2025-05-20] MEDS: vancomycin/NS 1 GM ADD-VANTAGE 250 ML X 1 DOSE IV SCH (08:57)
[2025-05-20 11:00] VITALS: BP 111/52; PULSE 62; RESP 20; TEMP 98.1; O2SAT 97
--- NOTE | 2025-05-20 11:44 | PATHOLOGY REPORT ---
[facility] [address] [place] [address] SURGICAL PATHOLOGY REPORT CaseNumber: [id number] Surgeon:Radha Moon D.O. CLINICAL INFORMATION CLINICAL INFORMATION: GI bleed/melena/hematochezia. 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 GASTRIC ANTRUM, BIOPSIES X 2 MICROSCOPIC DESCRIPTION: Reviewed is a single H&E-stained slide showing serial sections and levels of two fragments of gastric antral-type mucosa. There is no significant inflammation, edema, or vascula r congestion. There is no intestinal metaplasia. There are no dysplastic or neoplastic features. B. POLYP, ASCENDING COLON, BIOPSIES X 5 MICROSCOPIC DESCRIPTION: Reviewed is a single H&E-stained slide showing serial sections and levels of five polypoid fragments of colonic mucosa. There are areas involved by adenomatous changes that jay ure up to 0.5 cm in greatest dimension. There are no features of high-grade dysplasia or malignancy. GROSS DESCRIPTION A. GASTRIC ANTRUM, BIOPSIES X 2 GROSS DESCRIPTION: Received in a container of formalin labeled with the patient's name, number, and " antrum" are two pieces of urrutia tissue 0.2 and 0.3 cm. The specimen is entirely submitted as A1. The ti me at which the specimen was removed was 1415. The time at which the specimen was placed in formalin was 1415. (meb) B. POLYP, ASCENDING COLON, BIOPSIES X 5 GROSS DESCRIPTION: Received in a container of formalin labeled with the patient's name, number, and " ascending colon polyp" are five pieces of urrutia tissue 0.3-0.6 cm. The specimen is entirely submitted a s B1. The time at which the specimen was removed was 1430. The time at which the specimen was placed in formalin was 1430. (meb) Electronically signed by: Estuardo Mitchell M.D. 05/20/2025 11:14:00 AM
[2025-05-20] MEDS: lactobacillus rhamnosus 10,000 MMU CELLS/CAPSULE PO SCH (13:23)
[2025-05-20 15:00] VITALS: BP 114/74; PULSE 67; RESP 16; TEMP 98.1; O2SAT 100
--- NOTE | 2025-05-20 16:53 | PROGRESS NOTE- Residence ---
Progress Note - Resident Providers to CC Resident Creating Document: SEAN COLES RES ~ Antibiotic Timeout Antibiotic Ordered?: Yes Subjective The patient was seen and examined at bedside. Daughter was at bedside. Patient denied any overnight symptoms. He did not have any bowel movements. Objective Vital Signs Date Time Temp Pulse Resp B/P (MAP) Pulse Ox O2 Delivery O2 Flow Rate FiO2 05/20/25 15:00 98.1 67 16 114/74 (87) 100 Room Air 05/19/25 15:10 0.0 Result Diagram: 05/20/25 0519 05/20/25 0519 Elderly male, alert and oriented x4, not in acute distress Head: Normocephalic with an atraumatic Eyes: Pupils- 3mm, reacting to light, conjunctiva- anicteric Nose and throat: No polyps, septum- normal, no mucosal ulcers Neck: Supple, no lymphadenopathy, no carotid bruit Respiratory: No use of accessory muscles of respiration, Bilateral normal vesiscular breath sounds heard. No wheeze, rhochi or creps Cardiac: S1-S2 heard, rhythm regular, no gallop/murmur Abdomen: non distended, no tenderness, no organomegaly, bowel sounds - heard Extremities: no clubbing, 1+ pedal edema, no deformities, peripheral pulses - 2+ Skin: warm and dry, no rash, no purpura Neuro: No focal deficit, gross cranial nerve exam - normal Coagulation Studies Laboratory Tests Test 05/18/25 02:24 Prothrombin Time 10.6 SECONDS (9.0-12.0) INR International Normalized Ratio 1.0 INR Activated Partial Thromboplast Time 23 SECONDS (22-32) Coagulation Comments Advance Care Planning Advanced Care plannin - 30 Minutes Assessment Assessment This is a 84-year-old male with a history of hypertension, CAD s/p CABG, diverticulitis, atrial fibrillation s/p ablation, pacemaker placement on Eliquis was transferred from [facility] with a chief complaint of blood in stool. Patient had EGD and colonoscopy which were with a normal limits. Blood cultures positive for Gram-positive cocci in clusters, awaiting final reports. Plan Plan Upper GI bleed Normocytic normochromic anemia Chronic diarrhea Continue IV Protonix at 8 mg/hour. Patient scheduled for endoscopy and colonoscopy this afternoon. NPO and heart healthy diet after procedures. H&H trending down 10.7 today. Repeat another one at 5:00 p.m. today. 05/20/2025: Patient underwent EGD and colonoscopy yesterday (05/19/2025) EGD showed normal esophagus with mild gastritis with no active bleeding source, colonoscopy showed 2 polyps in the ascending colon and mild diverticulosis Continue NS at 50 cc/hour, Protonix infusion Pending stool studies Positive blood cultures for Gram-positive cocci in clusters Awaiting final report Empirically started patient on vancomycin pharmacy to dose History of atrial fibrillation S/p pacemaker placement, ablation Continue home medication metoprolol 100 mg daily. Hold Eliquis for now. Continue telemetry monitoring History of CHF, with reduced ejection fraction (LVEF 20 25%) AHA/ACC stage B, NYHA class II Moderate Aortic Valve Stenosis Pro BNP is 173, chest x-ray at other facility shows no pulmonary congestion. Echo showed: Overall systolic function is severely reduced. LVEF is 20-25%. Pacemaker wire in right heart. Elevated right heart pressures with an RVSP of 45 mmHg. Left atrium is moderately dilated. Probable trileaflet AV appears moderately sclerotic and calcified with moderate stenosis. TRE is measured at 1.30 cmsq. Peak / mean gradients of 33/17 mmHG. Peak velocity is measured at 288 cm/s. Stenosis severity is likely moderate, but fails to meet criteria due to low flow / low gradient conditions. Continue home medication Farxiga 10 mg p.o. daily, Lasix 20 mg p.o. b.i.d., Entresto b.i.d., spironolactone 12.5 p.o. daily. Hyperkalemia, resolved History of CAD s/p CABG, stent placement Currently on Eliquis. Not on aspirin. Hold Eliquis in the view of GI bleed. Hypertension Hyperlipidemia BPH Continue home medication metoprolol 100 mg, atorvastatin 40 mg p.o. daily, tamsulosin 0.4 mg daily CECI on CKD stage III please secondary to vasomotor nephropathy Hypernatremia -151 Renal function getting better with IV fluids. Decreased fluids to 50 mL/hour as he is developing pedal edema. Avoid contrast and nephrotoxic agents. Monitor CMP. Free water deficit 3.3 L, continue NS at 50 cc/hour unti he is euvolemic, then transition to 1/2 NS Encourage free water oral intake intake We will monitor CMP tomorrow History of gout Continue home medication allopurinol. Code Status: Full code DVT Prophylaxis: SCDs Analgesia/Sedation: [place] morphine p.r.n. Lines/Tubes: PIV Gi Prophylaxis: Protonix Nutrition: Heart healthy diet PT: Home independent Prognosis: Guarded Disposition: Pending blood culture reports, possible discharge tomorrow based on blood cultures. Sean Coles MD Internal Medicine Resident, PGY-2 Date of Service: May 20, 2025 Billing Provider: RENETTA COBIAN MD, GAURAV, RES May 20, 2025 16:53
[2025-05-20 18:00] VITALS: BP 107/46; PULSE 62; RESP 18; TEMP 97.4; O2SAT 96
[2025-05-20 22:00] VITALS: BP 111/54; PULSE 65; RESP 16; TEMP 98.1; O2SAT 98
[2025-05-21 02:00] VITALS: BP 118/50; PULSE 57; RESP 16; TEMP 97.9; O2SAT 100
[2025-05-21 05:59] LABS: MEAN PLATELET VOLUME 8.7 FL (7.4-10.4); RED CELL DISTRIBUTION WIDTH 15.6 % (11.5-14.5)
[2025-05-21 06:43] LABS: CREATININE 1.27 MG/DL (0.60-1.10); TOTAL CARBON DIOXIDE 23.7 MMOL/L (24-32); eCRCL 38 ML/MIN; eGFR 54 ML/MIN
[2025-05-21 08:20] VITALS: RESP 17; O2SAT 92
[2025-05-21 08:37] VITALS: BP 123/52; PULSE 64; RESP 18; TEMP 97; O2SAT 90
[2025-05-21 11:19] VITALS: BP 132/54; PULSE 62; RESP 14; TEMP 97.1; O2SAT 96
--- NOTE | 2025-05-21 19:23 | DISCHARGE SUMMARY-Residence ---
Discharge Summary Providers to CC Resident Creating Document: YUDITH CHAUV, RES ~ Discharge Summary Admission Diagnosis: GI bleed Hospital Course DATE OF ADMISSION: 05/18/2025 DATE OF DISCHARGE: 05/21/2025 Discharge Diagnosis\Comment: Upper GI bleed secondary to gastritis and colon polyps Normocytic normochromic anemia Chronic diarrhea History of atrial fibrillation S/p pacemaker placement, ablation History of CHF, with reduced ejection fraction (LVEF 20 - 25%) AHA/ACC stage B, NYHA class II Moderate Aortic Valve Stenosis Hyperkalemia, resolved History of CAD s/p CABG, stent placement Hypertension Hyperlipidemia BPH CECI on CKD stage III please secondary to vasomotor nephropathy Hypernatremia -151 History of gout Operations\Procedures: EGD Colonoscopy Consultants: Gastroenterology Complications: None Condition on DC: Stable Continued Medications: Apixaban (Eliquis) 5 Mg Tablet 1 TAB PO Q12H for 30 Days, #60 TAB Atorvastatin Calcium* (Lipitor*) 40 Mg Tablet 1 TAB PO DAILY for 30 Days, #30 TAB Dapagliflozin Propanediol (Farxiga) 10 Mg Tablet 1 TAB PO DAILY for 30 Days, #30 TAB Furosemide (Lasix) 40 Mg Tablet 0.5 TAB PO BID for 30 Days, #30 TAB 0 Refills Hydrocodone Bit/Acetaminophen (Hydrocodon-Acetaminophn 10-325 tablet) 10mg- 325mg Tablet 1-2 TABLET PO Q6H PRN for moderate or severe pain 4-10, #30 TABLET Metoprolol Succinate* (Toprol Xl*) 100 Mg Tab.sr.24h 1 TAB PO QAM for 30 Days, #30 TAB Metoprolol Succinate* (Toprol Xl*) 100 Mg Tab.sr.24h 2 TAB PO QPM for 30 Days, #30 TAB Potassium Chloride (Klor-Con) 10 Meq Tab.prt.sr 2 TAB PO DAILY for 30 Days, #30 TAB Probenecid (Probenecid) 500 Mg Tablet 1 TAB PO BID, TAB Sacubitril/Valsartan (Entresto 97 mg-103 mg Tablet) 97 Mg-103 Mg Tablet 1 TAB PO BID Spironolactone (Spironolactone) 25 Mg Tablet 0.5 TAB PO DAILY for 30 Days, #30 TAB Tamsulosin Hcl* (Flomax*) 0.4 Mg Cap.sr.24h 1 CAP PO DAILY for 30 Days, #30 CAP Discharge Summary: HPI as per admitting physician: This is a 84-year-old male with a history of hypertension, CAD s/p CABG, diverticulitis, atrial fibrillation s/p ablation, pacemaker placement on Eliquis was transferred from [facility] with a chief complaint of blood in stool. Patient states that he has been havi ng diarrhea on and off for one year for which his PCP suggested to avoid dairy products and diet and prescribed Imodium which he takes daily. He has a about two episodes of diarrhea every day. Diarrhea is associated with upset stomach, abdominal pain and bloating. This morning he also noticed moderate amount of blood in the stool due to which he got concerned and visited the ER. He denies fever but mentions that he has had melena on and off in the last 12 months. He denies any history of ulcers in the past or H pylori in the past. He never had endoscopy done in his last colonoscopy was 10 years ago. He does not have a GI doctor ED course at [facility]: His hemoglobin was 13.4 which dropped to 12 after administering fluids and stool occult was positive for GI bleed. He did have a maroon bloody stool on rectal exam. He also received a dose of tranexamic acid and Protonix and was transferred to [facility] for GI consultation. Patient also had hyperkalemia, elevated BUN and creatinine secondary to CKD Hospital course: The patient is a medically complex individual admitted for evaluation and management of a suspected upper gastrointestinal bleed in the setting of normocytic normochromic anemia and chronic diarrhea. On admission, hemoglobin was found to be trending down (10.7 g/dL on 05/20/2025), prompting a transfusion strategy and repeat hemoglobin checks. The patient underwent esophagogastroduodenoscopyand colonoscopy on 05/19/2025. EGD revealed a normal esophagus with mild gastritis but no evidence of active bleeding. Colonoscopy showed two polyps in the ascending colon and mild diverticulosis. He continued to receive a continuous Protonix infusion at 8 mg/hour and maintenance IV fluids (NS at 50 cc/hour), with a heart-healthy diet planned post-procedures. During the hospitalization, blood cultures returned positive for Gram-positive cocci in clusters which turned out to be staph epidermidis which is a contaminant. The patient has a known history of atrial fibrillation, status post pacemaker placement and ablation. He remains on telemetry and continues his home dose of metoprolol 100 mg daily. Eliquis has been temporarily held in light of recent GI bleeding until discharge. Cardiac history is significant for heart failure with reduced ejection fraction (LVEF 2025%), NYHA class II symptoms, and moderate aortic valve stenosis. A r ecent echocardiogram revealed severely depressed systolic function, elevated right heart pressures (RVSP 45 mmHg), moderate left atrial enlargement, and moderate aortic valve sclerosis with low-flow, low-gradient characteristics. BNP is mildly elevated (173 pg/mL), and a prior chest x-ray showed no evidence of pulmonary congestion. The patient remains on guideline-directed medical therapy, including Farxiga, Entresto, Lasix, and spironolactone. He also has a known history of coronary artery disease status post CABG and stent placement. Renal status has been complicated by acute kidney injury on baseline chronic kidney disease stage III, likely secondary to vasomotor nephropathy and volume depletion. He also presented with hypernatremia (Na 151) which improved gradually, attributed to a free water deficit (~3.3 L). His renal function is showing signs of improvement with IV fluids, but fluid rates were decreased to 50 cc/hour due to signs of pedal edema. Other chronic conditions being managed include hypertension, hyperlipidemia, benign prostatic hyperplasia and gout. He remains on his home medications: atorvastatin, tamsulosin, allopurinol, and metoprolol. Hyperkalemia noted earlier in the hospitalization has resolved. Patient has been restarted on Eliquis during discharge. Patient did not experience further complications throughout the entire hospital stay. Patient was seen and examined on the day of discharge. All labs, diagnostic workups, discharge plan discussed with patient in details during visit before discharge. All questions and concerns answered to the best of my professional knowledge. Physical examination today: Elderly male, alert and oriented x4, not in acute distress Head: Normocephalic with an atraumatic Eyes: Pupils- 3mm, reacting to light, conjunctiva- anicteric Nose and throat: No polyps, septum- normal, no mucosal ulcers Neck: Supple, no lymphadenopathy, no carotid bruit Respiratory: No use of accessory muscles of respiration, Bilateral normal vesiscular breath sounds heard. No wheeze, rhochi or creps Cardiac: S1-S2 heard, rhythm regular, no gallop/murmur Abdomen: non distended, no tenderness, no organomegaly, bowel sounds - heard Extremities: no clubbing, 1+ pedal edema, no deformities, peripheral pulses - 2+ Skin: warm and dry, no rash, no purpura Neuro: No focal deficit, gross cranial nerve exam - normal Laboratory Tests Test 05/19/25 19:23 05/20/25 05:19 05/21/25 05:21 White Blood Count 4.7 X10'3 4.5 X10'3 4.0 X10'3 Red Blood Count 3.10 X10'6 2.92 X10'6 2.88 X10'6 Hemoglobin 10.0 g/dl 9.3 g/dl 9.3 g/dl Hematocrit 29.9 % 28.2 % 27.4 % Mean Corpuscular Volume 96.7 FL 96.6 FL 95.0 FL Mean Corpuscular Hemoglobin 32.2 PG 32.0 PG 32.4 PG Mean Corpuscular Hemoglobin Concent 33.3 g/dL 33.1 g/dL 34.1 g/dL Red Cell Distribution Width 16.3 % 15.9 % 15.6 % Platelet Count 107 X10'3 97 X10'3 99 X10'3 Mean Platelet Volume 8.5 FL 8.9 FL 8.7 FL Hematology Comments Neutrophils (%) (Auto) 72.6 % 70.7 % Lymphocytes (%) (Auto) 16.4 % 19.0 % Monocytes (%) (Auto) 8.6 % 7.4 % Eosinophils (%) (Auto) 2.1 % 2.6 % Basophils (%) (Auto) 0.3 % 0.3 % Neutrophils # (Auto) 3.2 X10'3 2.8 X10'3 Lymphocytes # (Auto) 0.7 X10'3 0.8 X10'3 Monocytes # (Auto) 0.4 X10'3 0.3 X10'3 Eosinophils # (Auto) 0.1 X10'3 0.1 X10'3 Basophils # (Auto) 0.0 X10'3 0.0 X10'3 CBC Comment Sodium Level 151 MMOL/L 149 MMOL/L Potassium Level 4.2 MMOL/L 3.8 MMOL/L Chloride Level 118 MMOL/L 116 MMOL/L Carbon Dioxide Level 23.6 MMOL/L 23.7 MMOL/L Anion Gap 9 9 Blood Urea Nitrogen 49 MG/DL 31 MG/DL Creatinine 1.45 MG/DL 1.27 MG/DL Estimated GFR/1.73 m2 46 ML/MIN 54 ML/MIN BUN/Creatinine Ratio 33.8 24.4 Glucose Level 103 MG/DL 115 MG/DL Calcium Level 8.9 MG/DL 8.7 MG/DL Total Bilirubin 0.4 MG/DL 0.4 MG/DL Aspartate Amino Transf (AST/SGOT) 17 U/L 17 U/L Alanine Aminotransferase (ALT/SGPT) 18 U/L 18 U/L Alkaline Phosphatase 40 IU/L 38 IU/L Total Protein 6.0 G/DL 5.7 G/DL Albumin 3.0 G/DL 2.7 G/DL Globulin 3.0 G/DL 3.0 G/DL Albumin/Globulin Ratio 1.0 0.9 Chemistry Comments Advise on discharge: - Restarting eliquis, in any case of dark black stools or fresh red blood in stools, stop eliquis and come to the ED immediately - CBC in one week and follow up with PCP - Follow up with cardiology as scheduled - Call 911/ go to nearby ED if any other emergencies The patient felt ready to be discharged and was medically cleared to be discharged on 05/21/2025 The patient was seen and evaluated on day of discharge. Time spent on discharge 35 minutes *Problems/Diagnosis: (1) Upper GI bleed Status: Acute (2) Systolic heart failure Total Time Spent on D/C: > 30 Minutes Date of Service: May 21, 2025 Billing Provider: ADRI MARTE DO Common Visit Codes: 83173-[id number] DISCH DAY >30min SEAN CHAU, RES May 21, 2025 19:22 ADRI MARTE DO May 21, 2025 19:40
[2025-05-21] MEDS ORDERED: VANCOMYCIN LEVEL IV ONE (20:30)
== END 2025-05-21 16:21 | disposition home or self-care (01) | DRG 377 ==
LOC: ER 01:04 → ED HOLD 02:13 → PCU 3S 11:54
PROVIDERS: ADMIT Internal Medicine; ATTEND Family Medicine
PROC: 0DB68ZX Excision of Stomach, Via Natural or Artificial Opening Endoscopic, Diagnostic (ICD-10-PCS; principal; 2025-05-19 14:04)
PROC: 0DBK8ZZ Excision of Ascending Colon, Via Natural or Artificial Opening Endoscopic (ICD-10-PCS; 2025-05-19 14:04)
DX: K29.71 Gastritis, unspecified, with bleeding (principal); N17.0 Acute kidney failure with tubular necrosis; I13.0 Hypertensive heart and chronic kidney disease with heart failure and stage 1 through stage 4 chronic kidney disease, or unspecified chronic kidney disease; E87.0 Hyperosmolality and hypernatremia; I50.22 Chronic systolic (congestive) heart failure; K63.5 Polyp of colon; D12.2 Benign neoplasm of ascending colon; E87.5 Hyperkalemia; I35.0 Nonrheumatic aortic (valve) stenosis; I48.91 Unspecified atrial fibrillation; K29.80 Duodenitis without bleeding; D64.9 Anemia, unspecified; K57.30 Diverticulosis of large intestine without perforation or abscess without bleeding; N18.30 Chronic kidney disease, stage 3 unspecified; N40.0 Benign prostatic hyperplasia without lower urinary tract symptoms; E78.00 Pure hypercholesterolemia, unspecified; I25.10 Atherosclerotic heart disease of native coronary artery without angina pectoris; I25.2 Old myocardial infarction; Z95.1 Presence of aortocoronary bypass graft; Z95.0 Presence of cardiac pacemaker; Z88.5 Allergy status to narcotic agent; Z88.8 Allergy status to other drugs, medicaments and biological substances; Z91.018 Allergy to other foods; Z79.01 Long term (current) use of anticoagulants; Z79.899 Other long term (current) drug therapy
CPT/HCPCS: 36415; 43239; 45385; 71045; 80048; 80053; 80076; 81003; 82272; 82728; 83540; 83550; 83605; 83735; 83880; 84484; 85025; 85027; 85610; 85651; 85730; 86140; 86870; 86885; 86900; 86901; 87040; 87045; 87046; 87077; 87081; 87186; 89055; 93005; 93306; 97116; 97161; 97530; 99291; A6250; A6258; C1889; G0378; J2470; J2704; J3370; J3490; J7030; J7120